=== PATIENT | male | born 2000 | race Native Hawaiian/Other Pacific Islander ===

== ENCOUNTER 2025-06-02 20:36 | Emergency (ER) | payer OTHER ==
[~2025-06-02] VITALS: Ht 172.7 cm; Wt 91.8 kg
[2025-06-03] MEDS ORDERED: OXYC1TAB23 PO (01:16)
[2025-06-03] MEDS: PERCOCET 5MG/325MG TAB PO ONE (01:24)
[2025-06-03 01:47] VITALS: BP 116/77; TEMP 97.1; O2SAT 100
== END 2025-06-03 01:55 | disposition home or self-care (01) ==
LOC: M ED 20:36
DX: S42.021A Displaced fracture of shaft of right clavicle, initial encounter for closed fracture (principal); W19.XXXA Unspecified fall, initial encounter; Y92.9 Unspecified place or not applicable; Y93.51 Activity, roller skating (inline) and skateboarding; Y99.9 Unspecified external cause status